=== PATIENT | male | born 1965 ===

== ENCOUNTER → 2017-04-19 | Day surgery (SDC) | payer OTHER, MEDICARE ==
[~2017-04-19] VITALS: Ht 180.3 cm; Wt 80.3 kg
[~2017-04-19] MED LIST: MONTELUKAST SOD10 M1 PO; MULTIVITAMINS1 EAC9 PO; NIACIN500 M6 PO
--- NOTE | 2017-04-19 11:33 | Operative Report ---
Operative/Inv Procedure Report Surgery Date: 04/19/17 Name of Procedure: Rectal Examination under anesthesia Excision of anal skin tags Pre-Operative Diagnosis: Anal skin tags Post-Operative Diagnosis: same Estimated Blood Loss: scant Surgeon/Light Industrial: Magan Saucedo MD Anesthesia: local monitored anesthesi Specimens: Skin tags Operative/Procedure Note Note: After consent is brought to the operative laid supine. Sedation was obtained in placed in lithotomy position. Anus was prepped and draped. Digital rectal examination was unrevealing. Perianal nerve block was created with a cocktail local anesthesia. Rigid proctoscopy revealed scant grade 1/grade 2 internal hemorrhoids. We then proceeded to perform external hemorrhoidectomy. 2 skin tags were excised sharply and passed off the field. Hemostasis achieved with cautery. The wounds were closed loosely with interrupted 3-0 chromic gut. Bacitracin ointment and sterile dressings were applied CC: Dash VALENTINE,Sharita
== END ==
LOC: STS 04:58
DX: K64.4 Residual hemorrhoidal skin tags (principal); J45.909 Unspecified asthma, uncomplicated
CPT/HCPCS: J2250